=== PATIENT | female | born 2000 | race Caucasian/White ===

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

== ENCOUNTER 2020-08-26 13:49 | Emergency (ER) | payer MEDICAID ==
[~2020-08-26] VITALS: Ht 162.6 cm; Wt 98.0 kg
--- NOTE | 2020-08-26 13:58 | NUR ---
Dr San at the bedside for MSE.
[2020-08-26 14:39] LABS: CREATININE 0.7 mg/dL (0.6-1.3)
[2020-08-26 14:40] LABS: BASOPHILS # (AUTO) 0.1 K/uL (0.0-8.0); BASOPHILS % (AUTO) 0.7 % (0.0-2.0); EOSINOPHILS # (AUTO) 0.4 K/uL (0.0-0.7); EOSINOPHILS % (AUTO) 3.7 % (0.0-7.0); HEMOGLOBIN 11.6 g/dL (10.9-14.3); LYMPHOCYTES % (AUTO) 27.6 % (20.5-51.5); MEAN CORPUSCULAR HEMOGLOBIN 23.1 uug (24.7-32.8); MEAN CORPUSCULAR HGB CONC 31 g/dL (32.3-35.6); MONOCYTES # (AUTO) 0.7 K/uL (2.0-10.0); MONOCYTES % (AUTO) 6.1 % (0.0-11.0); NEUTROPHILS # (AUTO) 6.8 K/uL (1.8-8.9); NEUTROPHILS % (AUTO) 61.9 % (38.5-71.5); PLATELET COUNT (AUTO) 461 K/uL (179-408); RED BLOOD CELL COUNT(AUTO) 4.99 MIL/uL (3.63-4.92)
[2020-08-26 14:54] LABS: THYROID STIMULATING HORMONE 1.901 mIU/mL (0.358-3.740)
[2020-08-26 14:58] VITALS: BP 121/86
--- NOTE | 2020-08-26 14:58 | NUR ---
Patient discharged to home in stable condition. Written and verbal after care instructions given. Patient verbalizes understanding of instructions. Stressed follow up or return to ER for worsening s/s.
== END 2020-08-26 14:59 | disposition home or self-care (01) ==
LOC: ER 13:50
DX: S99.912A Unspecified injury of left ankle, initial encounter (principal); M25.572 Pain in left ankle and joints of left foot; W18.40XA Slipping, tripping and stumbling without falling, unspecified, initial encounter; Y92.89 Other specified places as the place of occurrence of the external cause; R00.0 Tachycardia, unspecified; E66.9 Obesity, unspecified; Z68.37 Body mass index [BMI] 37.0-37.9, adult
CPT/HCPCS: 36415; 73610; 84443; 85025; A4663

== ENCOUNTER 2020-09-11 20:15 | Emergency (ER) | payer MEDICAID ==
[~2020-09-11] VITALS: Ht 162.6 cm; Wt 119.3 kg
--- NOTE | 2020-09-11 20:45 | NUR ---
Dr Coulter is at bedside for MSE.
[2020-09-11 21:32] VITALS: BP 145/60
--- NOTE | 2020-09-11 21:32 | NUR ---
Patient has been cleared for DC by MD. X-rays were clear. Written and verbal after care instructions given. Patient verbalizes understanding of instructions. Stressed follow up or return to ER for worsening s/s. Pt has been discharged to home in stable condition.
== END 2020-09-11 21:33 | disposition home or self-care (01) ==
LOC: ER 20:17
DX: S93.402D Sprain of unspecified ligament of left ankle, subsequent encounter (principal); X58.XXXD Exposure to other specified factors, subsequent encounter; R00.0 Tachycardia, unspecified; E66.9 Obesity, unspecified; Z68.42 Body mass index [BMI] 45.0-49.9, adult
CPT/HCPCS: 73610; A4663

== ENCOUNTER 2021-02-09 16:51 | Emergency (ER) | payer MEDICAID ==
[~2021-02-09] VITALS: Ht 162.6 cm; Wt 119.3 kg
--- NOTE | 2021-02-09 17:08 | NUR ---
Pt c/o cold/flu-like s/s including cough (turned productive w/ scant blood), stuffy & runny nose, dizziness, reduction in taste, and now starting sore throat. Pt denies CP, SOB, no distress noted.
== END 2021-02-09 18:05 | disposition home or self-care (01) ==
LOC: ER 16:52
DX: J06.9 Acute upper respiratory infection, unspecified (principal); Z20.822 Contact with and (suspected) exposure to COVID-19; E66.9 Obesity, unspecified; Z68.42 Body mass index [BMI] 45.0-49.9, adult
CPT/HCPCS: 99283; U0003; A4663